=== PATIENT | male | born 1960 | race Two or more races ===

== ENCOUNTER 2022-07-04 06:16 | Inpatient (IN) | payer BC ==
[~2022-07-04] VITALS: Ht 175.3 cm; Wt 93.1 kg
[~2022-07-04 06:16] MED LIST: DICL50TA4 PO; LISI-283 PO; METO-289 PO; SIMV-13 PO
[2022-07-04] MEDS ORDERED: GELATIN 1 SPONGE SIZE 100 TOP ONE (06:31)
[2022-07-04] MEDS ORDERED: THROMBIN (BOVINE) 5000 UNIT SOL VIAL ONE (06:32)
[2022-07-04] MEDS ORDERED: ceFAZolin 1GM/50ML 100 ML IV ONE (06:41)
[2022-07-04] MEDS ORDERED: fentaNYL CITRATE 100 MCG/2 ML VL ONE (07:42)
[2022-07-04] MEDS ORDERED: MIDAZOLAM HCL 2MG/2ML 2ml VIAL (1mg/ml) ONE (07:43)
[2022-07-04] MEDS ORDERED: ROCURONIUM 10MG/ML 10ML VIAL IV ONE (07:47)
[2022-07-04] MEDS ORDERED: fentaNYL CITRATE 10 ML ONE (07:48)
[2022-07-04] MEDS ORDERED: ATROPINE SULF 0.5 MG/5ML SYR ONE (07:48)
[2022-07-04] MEDS ORDERED: LIDOCAINE 2% (LOCAL ANESTH.) PF 5ml SDV ONE (08:37)
[2022-07-04] MEDS ORDERED: NITROGLYCERIN 0.4 MG SL TAB SL PRN (08:45)
[2022-07-04] MEDS ORDERED: D5W/SOD CHL 0.45% 1,000 ML IV SCH (08:45)
[2022-07-04] MEDS ORDERED: MILK OF MAGNESIA 30ML SUSP PO PRN (08:45)
[2022-07-04] MEDS: ceFAZolin 1GM/50ML 50 ML IV SCH ×2 (08:45→17:13)
[2022-07-04] MEDS ORDERED: ePHEDrine SULFATE 50 MG/ML AMP ONE (09:37)
[2022-07-04] MEDS ORDERED: SUGAMMADEX 200mg/2ml Vial (100MG/ML) IV ONE (10:46)
[2022-07-04] MEDS ORDERED: ONDANSETRON HCL 4 MG/2 ML VIAL ONE (11:23)
[2022-07-04] MEDS ORDERED: ONDANSETRON HCL 4 MG/2 ML VIAL IV PRN (11:30)
[2022-07-04] MEDS ORDERED: HYDROmorphone HCL 2 MG/ML VL/or syr IV PRN ×2 (11:30)
[2022-07-04] MEDS ORDERED: HYDROmorphone HCL 2 MG/ML VL/or syr IV ONE ×4 (11:58→12:45)
[2022-07-04] MEDS ORDERED: CYCLOBENZAPRINE HCL 10 MG TAB PO ONE (12:19)
[2022-07-04] MEDS ORDERED: MECLIZINE HCL 25 MG TAB PO PRN (14:00)
[2022-07-04] MEDS: CYCLOBENZAPRINE HCL 10 MG TAB PO SCH ×2 (16:15→22:34)
[2022-07-04] MEDS: HYDROmorphone HCL 2 MG/ML VL/or syr IV PRN ×2 (16:54→21:14)
[2022-07-04 22:00] VITALS: BP 104/74
[2022-07-04 22:32] VITALS: BP 104/74
[2022-07-05] MEDS: HYDROmorphone HCL 2 MG/ML VL/or syr IV PRN ×4 (01:35→22:23)
[2022-07-05 05:00] VITALS: BP 141/75
[2022-07-05] MEDS: CYCLOBENZAPRINE HCL 10 MG TAB PO SCH ×3 (05:44→22:22)
[2022-07-05 07:51] LABS: Basophils # (auto) 0 10 ^3/uL (0-0.2); Basophils % (auto) 0.2 % (0.0-2.0); Eosinophils # (auto) 0 10 ^3/uL (0-0.8); Eosinophils % (auto) 0.2 % (0.0-7.0); Hematocrit 43.5 % (41.0-53.0); Hemoglobin 14.6 g/dL (13.5-17.5); Lymphocytes # (auto) 0.9 10 ^3/uL (0.4-5.4); Lymphocytes % (auto) 9.1 % (10.0-50.0); Mean Corpuscular Hemoglobin 33.8 pg (28.0-32.0); Mean Corpuscular Hgb Conc. 33.5 g/dL (32.0-36.0); Mean Corpuscular Volume 100.8 fL (80.0-100.0); Monocytes # (auto) 0.8 10 ^3/uL (0-1.3); Monocytes % (auto) 8.9 % (0.0-12.0); Neutrophils # (auto) 7.8 10 ^3/uL (1.6-8.6); Neutrophils % (auto) 81.6 % (37.0-80.0); Red Blood Cells 4.32 10^6/uL (4.5-5.90); Red Cell Distribution Width 13.9 % (11.8-14.3); White Blood Cell 9.5 10^3/uL (4.4-10.8)
[2022-07-05 08:00] VITALS: BP 115/75
[2022-07-05 09:30] LABS: Potassium 3.7 mmol/L (3.5-5.1)
[2022-07-05 09:36] LABS: Albumin 3.4 g/dL (3.4-5.0); BUN/Creatinine Ratio 12.6; Calcium 8.3 mg/dL (8.5-10.1)
[2022-07-05 09:39] LABS: Bilirubin, Total 0.7 mg/dL (0.2-1.0); Total Protein 6.6 g/dL (6.4-8.2)
[2022-07-05 12:00] VITALS: BP 158/80
[2022-07-05] MEDS ORDERED: LISINOPRIL 20 MG TAB PO ONE (12:45)
[2022-07-05] MEDS ORDERED: HCTZ 25 MG TAB PO ONE (12:45)
[2022-07-05] MEDS ORDERED: METOPROLOL SUCCINATE XL 50 MG TAB PO ONE (12:45)
[2022-07-05] MEDS: OXYCODONE W/ ACETAMINOPHEN 5/325MG TABLET PO PRN (12:59)
[2022-07-05 16:00] VITALS: BP 112/61
[2022-07-05 22:00] VITALS: BP 116/74
[2022-07-06 05:00] VITALS: BP 107/66
[2022-07-06] MEDS: HYDROmorphone HCL 2 MG/ML VL/or syr IV PRN ×4 (05:03→23:20)
[2022-07-06] MEDS: CYCLOBENZAPRINE HCL 10 MG TAB PO SCH ×3 (06:02→23:08)
[2022-07-06 09:00] VITALS: BP 118/66
[2022-07-06] MEDS: LISINOPRIL 20 MG TAB PO SCH (09:37)
[2022-07-06] MEDS: HCTZ 25 MG TAB PO SCH (09:38)
[2022-07-06] MEDS: METOPROLOL SUCCINATE XL 50 MG TAB PO SCH (09:38)
[2022-07-06 13:00] VITALS: BP 125/74
[2022-07-06] MEDS: OXYCODONE W/ ACETAMINOPHEN 5/325MG TABLET PO PRN ×2 (13:24→20:08)
[2022-07-06 16:43] VITALS: BP 116/64
[2022-07-06 22:00] VITALS: BP 123/70
[2022-07-07] MEDS: OXYCODONE W/ ACETAMINOPHEN 5/325MG TABLET PO PRN ×2 (02:27→21:58)
[2022-07-07] MEDS: CYCLOBENZAPRINE HCL 10 MG TAB PO SCH ×3 (04:29→21:59)
[2022-07-07] MEDS: HYDROmorphone HCL 2 MG/ML VL/or syr IV PRN ×5 (04:30→22:56)
[2022-07-07 05:00] VITALS: BP 119/68
[2022-07-07 08:15] VITALS: BP 125/79
[2022-07-07 09:00] VITALS: BP 125/79
[2022-07-07] MEDS: METOPROLOL SUCCINATE XL 50 MG TAB PO SCH (10:15)
[2022-07-07] MEDS: HCTZ 25 MG TAB PO SCH (10:15)
[2022-07-07] MEDS: LISINOPRIL 20 MG TAB PO SCH (10:15)
[2022-07-07 13:00] VITALS: BP 128/66
[2022-07-07 17:00] VITALS: BP 121/78
[2022-07-07 22:41] VITALS: BP 104/56
[2022-07-08 04:43] VITALS: BP 118/62
[2022-07-08] MEDS: HYDROmorphone HCL 2 MG/ML VL/or syr IV PRN ×3 (05:14→15:32)
[2022-07-08] MEDS: CYCLOBENZAPRINE HCL 10 MG TAB PO SCH ×2 (05:15→15:56)
[2022-07-08 09:00] VITALS: BP 101/63
[2022-07-08] MEDS: HCTZ 25 MG TAB PO SCH (09:56)
[2022-07-08] MEDS: LISINOPRIL 20 MG TAB PO SCH (09:57)
[2022-07-08] MEDS: METOPROLOL SUCCINATE XL 50 MG TAB PO SCH (09:57)
[2022-07-08] MEDS: OXYCODONE W/ ACETAMINOPHEN 5/325MG TABLET PO PRN (12:23)
[2022-07-08 13:10] VITALS: BP 109/74
[2022-07-08 15:11] VITALS: BP 109/74
[2022-07-08 15:32] VITALS: BP 109/74
== END 2022-07-08 15:52 | disposition home health service (06) | DRG 460 ==
LOC: SUR 06:16 → TELE 08:38 → TELE-CENTR 18:55
PROVIDERS: ADMIT Orthopaedic Surgery; ATTEND Orthopaedic Surgery
PROC: 01NB0ZZ Release Lumbar Nerve, Open Approach (ICD-10-PCS; 2022-07-04)
PROC: 00NY0ZZ Release Lumbar Spinal Cord, Open Approach (ICD-10-PCS; 2022-07-04)
PROC: 0SG00AJ Fusion of Lumbar Vertebral Joint with Interbody Fusion Device, Posterior Approach, Anterior Column, Open Approach (ICD-10-PCS; principal; 2022-07-04 08:05)
DX: M48.062 Spinal stenosis, lumbar region with neurogenic claudication (principal); M54.16 Radiculopathy, lumbar region; I10 Essential (primary) hypertension; E78.5 Hyperlipidemia, unspecified; E78.00 Pure hypercholesterolemia, unspecified; Z20.822 Contact with and (suspected) exposure to COVID-19; M43.16 Spondylolisthesis, lumbar region
CPT/HCPCS: 36415; 72100; 76000; 80053; 85025; 86850; 86900; 86901; 97110; 97116; 97163; 97530; G0378; J0461; J0690; J2001; J2250; J2405; J7060